=== PATIENT | male | born 1955 | race Caucasian/White ===

== ENCOUNTER 2019-08-17 08:45 | Day surgery (SDC) | payer MEDICARE, MEDICAID ==
[~2019-08-17 08:45] MED LIST: FURO-150 PO; GABA-532 PO; HYDR-3972 PO; IRON PO; METF1000 PO; PRAV40TA3 PO; PROC10TA10 PO; SERT50TA PO; SPIR100T5 PO; TERA5CAP4 PO
[2019-08-17] MEDS ORDERED: LIDOcaine 2% 5ml jelly ONE (09:27)
== END 2019-08-17 10:53 | disposition home or self-care (01) ==
LOC: WOUND CARE 08:45
PROVIDERS: ATTEND Nurse Practitioner Family
DX: E11.621 Type 2 diabetes mellitus with foot ulcer (principal); L97.511 Non-pressure chronic ulcer of other part of right foot limited to breakdown of skin; E11.49 Type 2 diabetes mellitus with other diabetic neurological complication; E11.65 Type 2 diabetes mellitus with hyperglycemia; I10 Essential (primary) hypertension; N40.0 Benign prostatic hyperplasia without lower urinary tract symptoms; E78.5 Hyperlipidemia, unspecified; E66.9 Obesity, unspecified; Z68.33 Body mass index [BMI] 33.0-33.9, adult; Z87.891 Personal history of nicotine dependence; Z85.72 Personal history of non-Hodgkin lymphomas
CPT/HCPCS: 36416; 82948; 93926; 97597

== ENCOUNTER 2019-08-20 14:05 | Day surgery (SDC) | payer MEDICARE, MEDICAID ==
[2019-08-20] MEDS ORDERED: LIDOcaine 2% 5ml jelly ONE (14:19)
== END 2019-08-20 15:04 | disposition home or self-care (01) ==
LOC: WOUND CARE 14:05
PROVIDERS: ATTEND Nurse Practitioner
DX: E11.621 Type 2 diabetes mellitus with foot ulcer (principal); L97.511 Non-pressure chronic ulcer of other part of right foot limited to breakdown of skin; E11.49 Type 2 diabetes mellitus with other diabetic neurological complication; E11.65 Type 2 diabetes mellitus with hyperglycemia; I10 Essential (primary) hypertension; N40.0 Benign prostatic hyperplasia without lower urinary tract symptoms; E78.5 Hyperlipidemia, unspecified; E66.9 Obesity, unspecified; Z68.33 Body mass index [BMI] 33.0-33.9, adult; Z87.891 Personal history of nicotine dependence; Z85.72 Personal history of non-Hodgkin lymphomas
CPT/HCPCS: 36416; 82948; 97597

== ENCOUNTER 2019-08-27 13:04 | Outpatient (CLI) | payer MEDICARE, MEDICAID | END 2019-08-27 13:50 | disposition home or self-care (01) | LOC: WOUND CARE 13:04 → EDSTATUS 13:40 → WOUND CARE 13:50 | PROVIDERS: ATTEND Nurse Practitioner | DX: E11.621 Type 2 diabetes mellitus with foot ulcer (principal); L97.511 Non-pressure chronic ulcer of other part of right foot limited to breakdown of skin; E11.49 Type 2 diabetes mellitus with other diabetic neurological complication; E11.65 Type 2 diabetes mellitus with hyperglycemia; I10 Essential (primary) hypertension; N40.0 Benign prostatic hyperplasia without lower urinary tract symptoms; E78.5 Hyperlipidemia, unspecified; E66.9 Obesity, unspecified; Z68.33 Body mass index [BMI] 33.0-33.9, adult; Z87.891 Personal history of nicotine dependence; Z85.72 Personal history of non-Hodgkin lymphomas | CPT/HCPCS: 36416; G0463 ==

== ENCOUNTER 2019-09-03 12:55 | Outpatient (CLI) | payer MEDICARE, MEDICAID | END 2019-09-03 13:56 | disposition home or self-care (01) | LOC: WOUND CARE 12:55 → EDSTATUS 13:00 → WOUND CARE 13:56 | PROVIDERS: ATTEND Nurse Practitioner | DX: E11.621 Type 2 diabetes mellitus with foot ulcer (principal); L97.511 Non-pressure chronic ulcer of other part of right foot limited to breakdown of skin; E11.49 Type 2 diabetes mellitus with other diabetic neurological complication; E11.65 Type 2 diabetes mellitus with hyperglycemia; I10 Essential (primary) hypertension; N40.0 Benign prostatic hyperplasia without lower urinary tract symptoms; E78.5 Hyperlipidemia, unspecified; E66.9 Obesity, unspecified; Z68.33 Body mass index [BMI] 33.0-33.9, adult; Z87.891 Personal history of nicotine dependence; Z85.72 Personal history of non-Hodgkin lymphomas | CPT/HCPCS: 36416; 82948; G0463 ==

== ENCOUNTER 2020-03-17 15:50 | Inpatient (IN) | payer MEDICARE, MEDICAID ==
[~2020-03-17] VITALS: Ht 185.4 cm; Wt 107.4 kg
[2020-03-17] MEDS ORDERED: normal saline 1000ML IV soln IVB ONE (16:55)
[2020-03-17 17:17] LABS: BASOPHILS % (AUTO) 0 % (0-1); EOSINOPHILS % (AUTO) 0 % (0-6); HEMATOCRIT 32.1 % (42.0-52.0); HEMOGLOBIN 10.1 g/dl (14.0-17.9); LYMPHOCYTES # (AUTO) 0.6 X10'3 (1.1-4.8); MEAN CORPUSCULAR HEMOGLOBIN 23.3 PG (27.0-31.0); MEAN CORPUSCULAR HGB CONC 31.4 g/dL (33.0-36.5); MEAN CORPUSCULAR VOLUME 74.3 FL (78-98); MEAN PLATELET VOLUME 8.6 FL (7.4-10.4); MONOCYTES # (AUTO) 0.7 X10'3 (0-0.9); MONOCYTES % (AUTO) 3.6 % (2-12); NEUTROPHILS # (AUTO) 18.8 X10'3 (1.8-7.7); NEUTROPHILS % (AUTO) 93.4 % (42-75); PLATELET COUNT 145 X10'3 (140-440); RED BLOOD COUNT 4.32 X10'6 (4.70-6.10); RED CELL DISTRIBUTION WIDTH 21.6 % (11.5-14.5); WHITE BLOOD COUNT 20.1 X10'3 (4.5-11.0)
--- NOTE | 2020-03-17 17:26 | NUR ---
spouse at bedside.
[2020-03-17 17:33] LABS: ALANINE AMINOTRANSFERASE 55 U/L (12-78); ALBUMIN 2.7 G/DL (3.4-5.0); ALBUMIN/GLOBULIN RATIO 0.5 (1.1-1.5); ALKALINE PHOSPHATASE 94 IU/L (46-116); ANION GAP 7 (8-16); ASPARTATE AMINO TRANSFERASE 43 U/L (10-37); BILIRUBIN,TOTAL 1.1 MG/DL (0.1-1.0); BLOOD UREA NITROGEN 33 MG/DL (7-18); CALCIUM 9.4 MG/DL (8.5-10.1); CHLORIDE 98 MMOL/L (99-107); CREATININE 1.32 MG/DL (0.60-1.10); GLUCOSE 279 MG/DL (70-104); POTASSIUM 4.4 MMOL/L (3.5-5.1); SODIUM 134 MMOL/L (135-145); TOTAL CARBON DIOXIDE 29.2 MMOL/L (24-32); eGFR 55 ML/MIN
[2020-03-17 17:35] LABS: LACTIC SEPSIS 1.8 MMOL/L (0.4-2.0)
[2020-03-17 17:42] LABS: CLARITY,URINE CLOUDY (Clear); COLOR,URINE YELLOW (Yellow); GLUCOSE, URINE 500 mg/dl (Neg); KETONES,URINE NEGATIVE (Neg); LEUKOCYTE ESTERASE ,URINE MODERATE (Neg); NITRITES, URINE NEGATIVE (Neg); OCCULT BLOOD,URINE LARGE (Neg); PROTEIN,URINE 30 mg/dl (Neg); UROBILINOGEN,URINE 0.2 E.U/dL (0.2-1.0)
[2020-03-17 17:48] LABS: ETHANOL < 0.010 GM/DL (0.0-0.010); TROPONIN I 0.04 NG/ML (0.0-0.05)
[2020-03-17 17:52] LABS: URINE AMPHETAMINE SCREEN NEGATIVE (Neg); URINE BARBITUATE SCREEN NEGATIVE (Neg); URINE BENZODIAZEPINES SCREEN NEGATIVE (Neg); URINE CANNABINOID SCREEN NEGATIVE (Neg); URINE COCAINE SCREEN NEGATIVE (Neg); URINE METHADONE SCREEN NEGATIVE (Neg); URINE OPIATE SCREEN POSITIVE (Neg); URINE PHENCYCLIDINE SCREEN NEGATIVE (Neg)
[2020-03-17 18:09] LABS: PLATELET ESTIMATE DECREASED
[2020-03-17 18:10] LABS: ANISOCYTOSIS 3+; ELLIPTOCYTES 1+; MICROCYTOSIS 1+; POIKILOCYTOSIS FEW; POLYCHROMASIA 1+; TARGET CELLS FEW
[2020-03-17 18:14] LABS: UA COLLECTION TYPE STRAIGHT CATH
[2020-03-17 18:15] LABS: WBC,URINE 50-100 /HPF (0-4)
[2020-03-17 18:16] LABS: AMORPHOUS URATES 3+; BACTERIA,URINE FEW /HPF (Neg); MUCUS STRANDS FEW /LPF (Neg); SQUAMOUS EPITHELIAL CELL,UR NONE SEEN /LPF (FEW)
[2020-03-17] MEDS ORDERED: CefTRIAXone 2gm/D5W 50ml BAG 50 ML IV ONE (19:40)
[2020-03-17] MEDS ORDERED: insulin regular, human 10 units/0.1 ml syringe IV ONE (19:40)
[2020-03-17] MEDS ORDERED: ondansetron/PF 4mg/2ml inj IV ONE (19:50)
[2020-03-17] MEDS ORDERED: morphine 4 MG/ML inj SYRINge IV ONE (19:50)
[2020-03-17] MEDS ORDERED: insulin regular, human 10 units/0.1 ml syringe SQ ONE (20:10)
--- NOTE | 2020-03-17 20:40 | NUR ---
pt non verbal, but appears more comfortable after morphine administration.
[2020-03-17] MEDS ORDERED: azithromycin/NS 500mg/250ml 250 ML IV ONE (20:50)
[2020-03-17] MEDS ORDERED: DEXL30CA3 PO (20:51)
[2020-03-17] MEDS ORDERED: GLIM2TAB6 PO (20:56)
[2020-03-17] MEDS ORDERED: RIVA20TA PO (20:56)
[2020-03-17] MEDS ORDERED: FLO0.4C PO (20:56)
[2020-03-17] MEDS ORDERED: magnesium 2GM in 50ml NS 50 ML IV PRN (21:00)
[2020-03-17] MEDS ORDERED: potassium CL 10mEq/100ml bag 100 ML IV PRN ×2 (21:00)
[2020-03-17] MEDS ORDERED: magnesium Cl slow-release 64mg tablet PO PRN (21:00)
[2020-03-17] MEDS ORDERED: ondansetron/PF 4mg/2ml inj IV PRN (21:00)
[2020-03-17] MEDS ORDERED: magnesium 4gm in 100ml NS 100 ML IV PRN (21:00)
[2020-03-17] MEDS ORDERED: potassium Cl 20 mEq SR tablet PO PRN (21:00)
--- NOTE | 2020-03-17 23:31 | NUR ---
Pt is diaphoretic with increased heart rate and respiratory rate. Hospitalist paged.
[2020-03-17] MEDS ORDERED: furosemide 10 MG/1 ML 10ml inj IV ONE (23:50)
[2020-03-17] MEDS ORDERED: ipratropium/albuterol 3ml nebule NEB ONE (23:50)
--- NOTE | 2020-03-17 23:55 | NUR ---
ekg completed at [id number]
--- NOTE | 2020-03-18 00:34 | NUR ---
Per MD, 60 mg Lasix administered. RT paged for SVT and BiPap. Condom cath reapplied
--- NOTE | 2020-03-18 01:05 | NUR ---
received report from Simran PERAZA [facility], had opportunity to ask questions, awaiting pt arrival to floor.
--- NOTE | 2020-03-18 01:09 | NUR ---
PAGER ID: [phone] MESSAGE: [phone], Valentin Fisher- pt needs an O2 and Bipap order. pt is coming up to the floor requiring both. thank you
--- NOTE | 2020-03-18 01:15 | NUR ---
pt arrived to floor with all belongings, tele attached, VS stable, call light in reach, pt pulled off condom cath again (acording to MACHINE MOLDER SQUEEZE), pt with visible urine on self, pt has wound on bottom, pt cleaned up and linens replaced, will ask MD for saldivar order.
--- NOTE | 2020-03-18 01:20 | NUR ---
per dr Myles, place saldivar to prevent further breakdown on bottom.
[2020-03-18 01:30] VITALS: BP 95/56
--- NOTE | 2020-03-18 02:13 | NUR ---
PAGER ID: [phone] MESSAGE: [phone], PhillipValentin- cannot place saldivar, multiple attempts unsuccessful, we need a urologist to place saldivar. pt continues to trickle pee w/ wound on bottom. condom cath does not work/stay on. Addendum: 03/18/20 at 0214 by John Ramos RN dr nuñez responded- place barrier cream for now and urologist can assess in AM
[2020-03-18] MEDS ORDERED: LIDOcaine 2% 10ml TOPICAL JELLY (Urojet) TP ONE (03:05)
[2020-03-18 03:41] LABS: ABG BASE EXCESS -1.5 mmol/L (-2.0-2.0); ABG HCO3 24.4 mmol/L (22.0-26.0); ABG PCO2 (T) 45.8 mmHg (35.0-48.0); ABG PO2 (T) 72.4 mmHg (75.0-100.0); ALLEN'S TEST POSITIVE; FMetHb 0.2 % (0.0-1.5); FO2Hb 91.9 % (94-97); PATIENT TEMPERATURE 36.9; RESPIRATORY RATE 16 b/min; TOTAL HEMOGLOBIN 11.3 G/dl (14.0-18.0)
--- NOTE | 2020-03-18 04:09 | NUR ---
unable to complete DART pt not able to answer questions
[2020-03-18 05:50] LABS: ALBUMIN 2.5 G/DL (3.4-5.0); ANION GAP 10 (8-16); BLOOD UREA NITROGEN 42 MG/DL (7-18); BUN/CREATININE RATIO 27.5 (5.4-32.0); CALCIUM 8.9 MG/DL (8.5-10.1); CHLORIDE 103 MMOL/L (99-107); CHOLESTEROL 70 MG/DL (0-200); CREATININE 1.53 MG/DL (0.60-1.10); HDL CHOLESTEROL 10 MG/DL (35-60); LDL CHOLESTEROL 42 MG/DL (50-100); MAGNESIUM 1.9 MG/DL (1.5-2.4); POTASSIUM 4.4 MMOL/L (3.5-5.1); SODIUM 140 MMOL/L (135-145); TOTAL CARBON DIOXIDE 26.7 MMOL/L (24-32); TRIGLYCERIDES 105 MG/DL (20-135); eGFR 46 ML/MIN
[2020-03-18 05:51] LABS: GLUCOSE 278 MG/DL (70-104)
[2020-03-18 05:52] LABS: BASOPHILS % (AUTO) 0.1 % (0-1); EOSINOPHILS % (AUTO) 0 % (0-6); HEMATOCRIT 32.3 % (42.0-52.0); LYMPHOCYTES # (AUTO) 0.5 X10'3 (1.1-4.8); LYMPHOCYTES % (AUTO) 2.5 % (21-51); MEAN CORPUSCULAR HGB CONC 30.9 g/dL (33.0-36.5); MEAN CORPUSCULAR VOLUME 74.6 FL (78-98); MEAN PLATELET VOLUME 8.9 FL (7.4-10.4); MONOCYTES # (AUTO) 0.5 X10'3 (0-0.9); MONOCYTES % (AUTO) 2.7 % (2-12); NEUTROPHILS # (AUTO) 18.5 X10'3 (1.8-7.7); NEUTROPHILS % (AUTO) 94.7 % (42-75); PLATELET COUNT 132 X10'3 (140-440); RED BLOOD COUNT 4.34 X10'6 (4.70-6.10); RED CELL DISTRIBUTION WIDTH 21.5 % (11.5-14.5); WHITE BLOOD COUNT 19.6 X10'3 (4.5-11.0)
[2020-03-18 06:00] VITALS: BP 98/60
--- NOTE | 2020-03-18 06:28 | NUR ---
Problems reprioritized. Patient report given, questions answered & plan of care reviewed with Dolores Nathan RN.
[2020-03-18] MEDS: K and/or MAG REPLACEMENT MC SCH ×2 (07:27→20:06)
[2020-03-18] MEDS: levoFLOXACIN-Levaquin 500mg/D5 100 ML IV SCH (07:45)
[2020-03-18 07:49] LABS: ANISOCYTOSIS 3+; MICROCYTOSIS 1+; PLATELET ESTIMATE DECREASED; POLYCHROMASIA FEW
[2020-03-18 07:50] LABS: ELLIPTOCYTES 1+; SCHISTOCYTES FEW
[2020-03-18] MEDS: gabapentin 300mg capsule PO SCH ×2 (09:12→13:25)
[2020-03-18] MEDS: ferrous sulfate 325mg tablet PO SCH (09:13)
[2020-03-18] MEDS: tamsulosin 0.4mg capsule PO SCH (09:13)
[2020-03-18] MEDS: sertraline 50mg tablet PO SCH (09:13)
[2020-03-18] MEDS: pravastatin 40mg tablet PO SCH (09:22)
--- NOTE | 2020-03-18 10:08 | NUR ---
Pt with a low Karthik of 9. No documented edema or wounds per physical assessment though noted that wound care has been consulted for wound on coccyx per consult, pending assessment at this time. Pt documented as A/O x 1 and confused, currently NPO. Will continue to follow closely and monitor need for nutrition intervention with PO diet advancement pending wound care assessment. Addendum: 03/18/20 at [address] Amended: Links added.
[2020-03-18 11:00] VITALS: BP 96/48
--- NOTE | 2020-03-18 13:51 | NUR ---
Page to [facility] PAGER ID: [phone] MESSAGE: [phone] Pt. has BG levels > 250 this morning and this afternoon. The insulin has been DC'd. No diet orders .He has successfully remained off Bi-ipap since this AM. Sats in mid 90's. Skin is clammy and cool, LOC Obtunded.
[2020-03-18] MEDS: CefTRIAXone/D5W-Rocephin 1gm 50 ML IV SCH (14:39)
[2020-03-18 14:40] LABS: ABG BASE EXCESS 0.2 mmol/L (-2.0-2.0); ABG HCO3 26.1 mmol/L (22.0-26.0); ABG OXYGEN SATURATION 93.8 % (94-97); ABG PCO2 (T) 47.5 mmHg (35.0-48.0); ABG PO2 (T) 75.3 mmHg (75.0-100.0); ALLEN'S TEST POSITIVE; FCOHb 1.4 % (0.0-3.9); FLOW 3 L/min; FO2Hb 92.5 % (94-97); TOTAL HEMOGLOBIN 10.9 G/dl (14.0-18.0)
[2020-03-18 15:00] VITALS: BP 94/54
[2020-03-18] MEDS: rivaroxaban 20mg tablet PO SCH (17:53)
[2020-03-18 18:00] VITALS: BP 95/59
--- NOTE | 2020-03-18 18:44 | NUR ---
Add to History Stage 4 lymphoma 2012. Treated at [facility]
--- NOTE | 2020-03-18 18:55 | NUR ---
Patient in room PCU 3012. I have received report from NATALIE PERAZA and had the opportunity to ask questions and assume patient care.
[2020-03-18] MEDS: lactobacillus rhamnosus 10,000 MMU CELLS/CAPSULE PO SCH (20:00)
[2020-03-18] MEDS ORDERED: dextrose ORAL solution 15 GM/59 ML bottle PO PRN ×2 (20:35)
[2020-03-18] MEDS ORDERED: dextrose 50%-water 50ml dispensing syringe IV PRN ×2 (20:35)
[2020-03-18] MEDS ORDERED: glucagon, human recombinant 1mg kit SUBCUT PRN (20:35)
[2020-03-18] MEDS ORDERED: MESSAGE TO PHARMACY PO ONE (20:35)
[2020-03-18 21:14] LABS: HEMOGLOBIN A1C 10.5 % (4.5-6.2)
[2020-03-18 22:00] VITALS: BP 101/64
[2020-03-19] MEDS: insulin Lispro (HumaLOG) vial - multi-dose SQ SCH ×4 (01:47→18:59)
[2020-03-19 02:00] VITALS: BP 101/61
--- NOTE | 2020-03-19 06:01 | NUR ---
Student documentation: I have reviewed and agree with all interventions, assessments performed and documented by Cody MEANS. Student Medication Administration: For this medication-pass time frame, all medication were reviewed, dispensed, administered and documented per hospital policy by Cody Harper RN.
--- NOTE | 2020-03-19 06:22 | NUR ---
Problems reprioritized. Patient report given, questions answered & plan of care reviewed with Yolanda PERAZA.
[2020-03-19 06:23] LABS: ALBUMIN 2.2 G/DL (3.4-5.0); ANION GAP 10 (8-16); BLOOD UREA NITROGEN 60 MG/DL (7-18); BUN/CREATININE RATIO 42.6 (5.4-32.0); CALCIUM 8.4 MG/DL (8.5-10.1); CHLORIDE 103 MMOL/L (99-107); CREATININE 1.41 MG/DL (0.60-1.10); GLUCOSE 212 MG/DL (70-104); MAGNESIUM 2.2 MG/DL (1.5-2.4); POTASSIUM 3.7 MMOL/L (3.5-5.1); SODIUM 139 MMOL/L (135-145); TOTAL CARBON DIOXIDE 26.4 MMOL/L (24-32); eGFR 51 ML/MIN
[2020-03-19 06:24] LABS: BASOPHILS # (AUTO) 0.1 X10'3 (0-0.2); BASOPHILS % (AUTO) 0.4 % (0-1); EOSINOPHILS % (AUTO) 0 % (0-6); HEMATOCRIT 30.4 % (42.0-52.0); HEMOGLOBIN 9.5 g/dl (14.0-17.9); LYMPHOCYTES # (AUTO) 0.4 X10'3 (1.1-4.8); LYMPHOCYTES % (AUTO) 3.2 % (21-51); MEAN CORPUSCULAR HEMOGLOBIN 23.4 PG (27.0-31.0); MEAN CORPUSCULAR HGB CONC 31.2 g/dL (33.0-36.5); MEAN CORPUSCULAR VOLUME 74.9 FL (78-98); MEAN PLATELET VOLUME 8.8 FL (7.4-10.4); MONOCYTES # (AUTO) 0.5 X10'3 (0-0.9); MONOCYTES % (AUTO) 3.7 % (2-12); NEUTROPHILS # (AUTO) 11.8 X10'3 (1.8-7.7); NEUTROPHILS % (AUTO) 92.7 % (42-75); PLATELET COUNT 95 X10'3 (140-440); RED BLOOD COUNT 4.06 X10'6 (4.70-6.10); RED CELL DISTRIBUTION WIDTH 21.2 % (11.5-14.5); WHITE BLOOD COUNT 12.8 X10'3 (4.5-11.0)
--- NOTE | 2020-03-19 06:45 | NUR ---
Patient in room PCU 3012. I have received report from Jony PERAZA and had the opportunity to ask questions and assume patient care.
[2020-03-19 07:00] VITALS: BP 99/54
[2020-03-19 07:37] LABS: PLATELET ESTIMATE DECREASED
[2020-03-19 07:38] LABS: ANISOCYTOSIS 3+; BURR CELLS FEW; ELLIPTOCYTES 1+; HYPOCHROMASIA 1+; MICROCYTOSIS 1+; POLYCHROMASIA 1+; SCHISTOCYTES FEW; TARGET CELLS FEW; TEAR DROP CELLS 1+
--- NOTE | 2020-03-19 07:46 | NUR ---
PAGER ID: [phone] MESSAGE: [phone] Valentin Fisher continually yelling about food. Can patient eat? He is more alert today. Yolanda PERAZA [id number]
[2020-03-19] MEDS: K and/or MAG REPLACEMENT MC SCH ×2 (08:00→20:00)
[2020-03-19] MEDS: levoFLOXACIN-Levaquin 500mg/D5 100 ML IV SCH (08:44)
[2020-03-19] MEDS: CefTRIAXone/D5W-Rocephin 1gm 50 ML IV SCH (08:44)
[2020-03-19] MEDS: lactobacillus rhamnosus 10,000 MMU CELLS/CAPSULE PO SCH ×2 (08:45→21:23)
[2020-03-19] MEDS: sertraline 50mg tablet PO SCH (08:45)
[2020-03-19] MEDS: tamsulosin 0.4mg capsule PO SCH (08:45)
[2020-03-19] MEDS: pravastatin 40mg tablet PO SCH (08:45)
[2020-03-19] MEDS: ferrous sulfate 325mg tablet PO SCH (08:45)
[2020-03-19 11:00] VITALS: BP 87/54
--- NOTE | 2020-03-19 11:22 | NUR ---
Bedside swallow performed with soft foods and thin liquids. Patient did well with no coughing or signs of distress. MD at bedside and gave orders to start [facility] soft diet.
--- NOTE | 2020-03-19 12:16 | NUR ---
MD is aware of lower BP trends, MAP always greater than 60. Pt. asymptomatic.
[2020-03-19 15:00] VITALS: BP 95/57
[2020-03-19] MEDS: vancomycin/NS 1 GM ADD-VANTAGE 250 ML IV SCH (16:02)
[2020-03-19] MEDS: rivaroxaban 20mg tablet PO SCH (16:10)
--- NOTE | 2020-03-19 17:02 | NUR ---
Malnutrition/DM consults: Pt admit DX sepsis r/t UTI, AMS, T2DM A1C 10.5, and sacral/coccyx pressure injury open pending WOC assessment per EMR. Advanced to carb controlled diet from NPO; refused first meal at lunch today. MCV 74.9 receiving iron and takes at home per EMR. Pt hx trouble getting Glu below 400 though only takes metformin at home per EMR. Not appropriate for DM ed at this time given ALOC AOx2; deferred until more appropriate. Will monitor for WOC assessment and additional protein education needs pending results. Will monitor for PO acceptance and additional protein/kcal needs this admit. Rec: 1. continue carb controlled diet 2. monitor for ONS needs pending PO hx 3. routine bowel care 4. monitor for WOC results; consider Srini supplementation if appropriate 5. wt per rx Addendum: 03/19/20 at [address] Amended: Links added.
--- NOTE | 2020-03-19 18:26 | NUR ---
Problems reprioritized. Patient report given, questions answered & plan of care reviewed with Soraya PERAZA. Pt. sitting on edge of bed. Pt. is no apparent distress.
[2020-03-19 18:30] VITALS: BP 101/53
--- NOTE | 2020-03-19 18:30 | NUR ---
Patient in room PCU 3012. I have received report from GISELLE and had the opportunity to ask questions and assume patient care.
[2020-03-19] MEDS: acetaminophen 325mg tablet PO PRN (19:00)
[2020-03-19 22:00] VITALS: BP 92/56
[2020-03-20 03:00] VITALS: BP 100/60
[2020-03-20] MEDS: vancomycin/NS 1 GM ADD-VANTAGE 250 ML IV SCH ×2 (03:28→15:54)
--- NOTE | 2020-03-20 06:24 | NUR ---
Problems reprioritized. Patient report given, questions answered & plan of care reviewed with GISELLE.
[2020-03-20 06:26] LABS: BASOPHILS % (AUTO) 0.1 % (0-1); EOSINOPHILS % (AUTO) 0.2 % (0-6); HEMATOCRIT 30.2 % (42.0-52.0); HEMOGLOBIN 9.5 g/dl (14.0-17.9); LYMPHOCYTES # (AUTO) 0.7 X10'3 (1.1-4.8); LYMPHOCYTES % (AUTO) 5.2 % (21-51); MEAN CORPUSCULAR HEMOGLOBIN 23.3 PG (27.0-31.0); MEAN CORPUSCULAR HGB CONC 31.3 g/dL (33.0-36.5); MEAN CORPUSCULAR VOLUME 74.3 FL (78-98); MEAN PLATELET VOLUME 8.5 FL (7.4-10.4); MONOCYTES # (AUTO) 0.6 X10'3 (0-0.9); MONOCYTES % (AUTO) 4.3 % (2-12); NEUTROPHILS # (AUTO) 11.5 X10'3 (1.8-7.7); NEUTROPHILS % (AUTO) 90.2 % (42-75); PLATELET COUNT 101 X10'3 (140-440); RED BLOOD COUNT 4.07 X10'6 (4.70-6.10); WHITE BLOOD COUNT 12.7 X10'3 (4.5-11.0)
[2020-03-20 06:33] LABS: ALBUMIN 2.1 G/DL (3.4-5.0); ANION GAP 6 (8-16); BLOOD UREA NITROGEN 54 MG/DL (7-18); BUN/CREATININE RATIO 45.8 (5.4-32.0); CALCIUM 8.2 MG/DL (8.5-10.1); CHLORIDE 101 MMOL/L (99-107); CREATININE 1.18 MG/DL (0.60-1.10); MAGNESIUM 2.2 MG/DL (1.5-2.4); POTASSIUM 3.4 MMOL/L (3.5-5.1); SODIUM 136 MMOL/L (135-145); TOTAL CARBON DIOXIDE 28.8 MMOL/L (24-32); eGFR 62 ML/MIN
[2020-03-20 06:34] LABS: GLUCOSE 157 MG/DL (70-104)
--- NOTE | 2020-03-20 06:37 | NUR ---
Patient in room PCU 3012. I have received report from Soraya PERAZA and had the opportunity to ask questions and assume patient care.
[2020-03-20 07:00] VITALS: BP 109/58
[2020-03-20 07:51] LABS: ANISOCYTOSIS 3+; TOTAL CELLS COUNTED 100
[2020-03-20 07:52] LABS: ELLIPTOCYTES 1+
[2020-03-20 07:55] LABS: SCHISTOCYTES 1+
[2020-03-20 07:56] LABS: POLYCHROMASIA FEW; TEAR DROP CELLS 1+
[2020-03-20 07:57] LABS: BURR CELLS FEW; HYPOCHROMASIA 1+; MICROCYTOSIS 1+
[2020-03-20 07:58] LABS: PLATELET ESTIMATE DECREASED; TOXIC VACUOLATION FEW
[2020-03-20 07:59] LABS: TOXIC GRANULATION 1+
[2020-03-20] MEDS: lactobacillus rhamnosus 10,000 MMU CELLS/CAPSULE PO SCH ×2 (08:17→19:05)
[2020-03-20] MEDS: potassium Cl 20 mEq SR tablet PO PRN ×3 (08:17→16:36)
[2020-03-20] MEDS: ferrous sulfate 325mg tablet PO SCH (08:17)
[2020-03-20] MEDS: sertraline 50mg tablet PO SCH (08:17)
[2020-03-20] MEDS: tamsulosin 0.4mg capsule PO SCH (08:17)
[2020-03-20] MEDS: CefTRIAXone/D5W-Rocephin 1gm 50 ML IV SCH (08:17)
[2020-03-20] MEDS: K and/or MAG REPLACEMENT MC SCH ×2 (08:30→20:00)
[2020-03-20] MEDS: pravastatin 40mg tablet PO SCH (09:00)
[2020-03-20] MEDS: insulin Lispro (HumaLOG) vial - multi-dose SQ SCH ×3 (09:02→19:07)
[2020-03-20 11:00] VITALS: BP 111/59
--- NOTE | 2020-03-20 11:48 | NUR ---
PAGER ID: [phone] MESSAGE: [phone] Valentin Fisher - Patient takes Neurontin 900 mg TID at home, can we restart this? Yolanda PERAZA [id number]
[2020-03-20 15:00] VITALS: BP 112/64
[2020-03-20] MEDS: rivaroxaban 20mg tablet PO SCH (16:36)
--- NOTE | 2020-03-20 16:48 | NUR ---
PAGER ID: [phone] MESSAGE: [phone] Valentin Fisher 7 beat run of rosiotachAsymptomatic. Yolanda RN [id number]
[2020-03-20 18:00] VITALS: BP 108/52
--- NOTE | 2020-03-20 18:17 | NUR ---
Problems reprioritized. Patient report given, questions answered & plan of care reviewed with Lola PERAZA and Nettie PERAZA.
--- NOTE | 2020-03-20 18:30 | NUR ---
Patient in room PCU 3012. I have received report from Yolanda PERAZA and had the opportunity to ask questions and assume patient care.
[2020-03-20 22:00] VITALS: BP 122/56
[2020-03-20] MEDS: insulin glargine (Lantus) pen - multi-dose SQ SCH (22:00)
[2020-03-20] MEDS ORDERED: acetaminophen 325mg tablet PO PRN (23:45)
[2020-03-21] MEDS: acetaminophen 325mg tablet PO PRN (00:12)
[2020-03-21 02:00] VITALS: BP 110/47
[2020-03-21] MEDS ORDERED: VANCOMYCIN LEVEL IV ONE (02:30)
[2020-03-21 02:54] LABS: BASOPHILS % (AUTO) 0 % (0-1); EOSINOPHILS % (AUTO) 0.3 % (0-6); HEMATOCRIT 30.5 % (42.0-52.0); HEMOGLOBIN 9.5 g/dl (14.0-17.9); LYMPHOCYTES # (AUTO) 0.7 X10'3 (1.1-4.8); LYMPHOCYTES % (AUTO) 4.9 % (21-51); MEAN CORPUSCULAR HEMOGLOBIN 23.5 PG (27.0-31.0); MEAN CORPUSCULAR HGB CONC 31.3 g/dL (33.0-36.5); MEAN PLATELET VOLUME 8.5 FL (7.4-10.4); MONOCYTES # (AUTO) 0.6 X10'3 (0-0.9); MONOCYTES % (AUTO) 4.1 % (2-12); NEUTROPHILS # (AUTO) 12.4 X10'3 (1.8-7.7); NEUTROPHILS % (AUTO) 90.7 % (42-75); PLATELET COUNT 113 X10'3 (140-440); RED BLOOD COUNT 4.06 X10'6 (4.70-6.10); RED CELL DISTRIBUTION WIDTH 21.5 % (11.5-14.5); WHITE BLOOD COUNT 13.7 X10'3 (4.5-11.0)
[2020-03-21 03:08] LABS: ALBUMIN 2.2 G/DL (3.4-5.0); ANION GAP 5 (8-16); BLOOD UREA NITROGEN 41 MG/DL (7-18); CALCIUM 8.3 MG/DL (8.5-10.1); CHLORIDE 104 MMOL/L (99-107); CREATININE 1.05 MG/DL (0.60-1.10); MAGNESIUM 2.2 MG/DL (1.5-2.4); POTASSIUM 3.9 MMOL/L (3.5-5.1); SODIUM 138 MMOL/L (135-145); TOTAL CARBON DIOXIDE 29.4 MMOL/L (24-32); eGFR 71 ML/MIN
[2020-03-21 03:09] LABS: GLUCOSE 211 MG/DL (70-104); VANCOMYCIN,TROUGH 10.5 UG/ML (6.0-14.0)
[2020-03-21] MEDS: vancomycin/NS 1 GM ADD-VANTAGE 250 ML IV SCH (03:15)
--- NOTE | 2020-03-21 05:08 | NUR ---
[place] documentation: I have reviewed and agree with all interventions, assessments performed and documented by Nettie PERAZA. [place] Medication Administration: For this medication-pass time frame, all medication were reviewed, dispensed, administered and documented per hospital policy by Nettie PERAZA.
--- NOTE | 2020-03-21 05:59 | NUR ---
Problems reprioritized. Patient report given, questions answered & plan of care reviewed with Yolanda Lara RN.
--- NOTE | 2020-03-21 06:29 | NUR ---
Patient in room PCU 3012. I have received report from KARMEN Davila and had the opportunity to ask questions and assume patient care.
[2020-03-21 07:00] VITALS: BP 102/61
[2020-03-21] MEDS: K and/or MAG REPLACEMENT MC SCH ×2 (08:00→20:00)
[2020-03-21] MEDS: CefTRIAXone/D5W-Rocephin 1gm 50 ML IV SCH (08:14)
[2020-03-21] MEDS: ferrous sulfate 325mg tablet PO SCH (08:14)
[2020-03-21] MEDS: tamsulosin 0.4mg capsule PO SCH (08:14)
[2020-03-21] MEDS: lactobacillus rhamnosus 10,000 MMU CELLS/CAPSULE PO SCH ×2 (08:14→20:02)
[2020-03-21] MEDS: pravastatin 40mg tablet PO SCH (08:15)
[2020-03-21] MEDS: sertraline 50mg tablet PO SCH (08:16)
[2020-03-21] MEDS: insulin Lispro (HumaLOG) vial - multi-dose SQ SCH ×3 (08:40→19:15)
[2020-03-21 11:00] VITALS: BP 110/52
--- NOTE | 2020-03-21 11:25 | NUR ---
F/u 03/21: Per WOC note pt has stage II coccyx PU w/ moisture-related dermatitis. Pt PO remains poor on carb controlled diet 0-25% mostly 0%/refusing not meeting needs. AOx3 per EMR. RD recommends Srini smoothie BIDBD w/ Glucerna WL for additional protein, kcal, and wound healing needs. notified. Rec: 1. continue carb controlled diet; encourage PO 2. Srini smoothie BIDBD; Glucerna WL; encourage PO 3. routine bowel care 4. wt per rx 5. DM/high protein eds once pt more appropriate Addendum: 03/21/20 at [address] Amended: Links added.
[2020-03-21] MEDS: NUT.TX.GLUC.INTOLER,LAC-FR,SOY (GLUCERNA) 237 ML PO SCH (12:30)
[2020-03-21] MEDS: gabapentin 300mg capsule PO SCH ×2 (13:12→20:02)
[2020-03-21 15:00] VITALS: BP 119/75
[2020-03-21] MEDS: rivaroxaban 20mg tablet PO SCH (17:27)
[2020-03-21] MEDS: VANCOmycin 1250MG/NS 250ml Bag 250 ML IV SCH (17:27)
[2020-03-21 18:00] VITALS: BP 103/46
--- NOTE | 2020-03-21 18:30 | NUR ---
Patient in room PCU 3012. I have received report from Yolanda PERAZA and had the opportunity to ask questions and assume patient care.
--- NOTE | 2020-03-21 18:33 | NUR ---
Problems reprioritized. Patient report given, questions answered & plan of care reviewed with Lola PERAZA and Nettie PERAZA. Pt. is sitting on the edge of bed, eating dinner. Pt. offers no complaints.
[2020-03-21] MEDS: insulin glargine (Lantus) pen - multi-dose SQ SCH (21:00)
--- NOTE | 2020-03-21 21:19 | NUR ---
Administered lantus 12 units 03/20/2020 @2200. Called pharmacy to have it retimed for 2099 was not retimed, will undo medication specialist to keep lantus schedule on track
[2020-03-21 22:00] VITALS: BP 105/60
[2020-03-22 02:00] VITALS: BP 120/52
[2020-03-22] MEDS: VANCOmycin 1250MG/NS 250ml Bag 250 ML IV SCH ×2 (02:19→15:28)
[2020-03-22 05:09] LABS: BASOPHILS # (AUTO) 0.1 X10'3 (0-0.2); BASOPHILS % (AUTO) 0.5 % (0-1); EOSINOPHILS % (AUTO) 0.3 % (0-6); HEMATOCRIT 31.8 % (42.0-52.0); HEMOGLOBIN 9.7 g/dl (14.0-17.9); LYMPHOCYTES # (AUTO) 0.8 X10'3 (1.1-4.8); LYMPHOCYTES % (AUTO) 5.9 % (21-51); MEAN CORPUSCULAR HGB CONC 30.5 g/dL (33.0-36.5); MEAN CORPUSCULAR VOLUME 75.4 FL (78-98); MEAN PLATELET VOLUME 8.3 FL (7.4-10.4); MONOCYTES # (AUTO) 0.5 X10'3 (0-0.9); MONOCYTES % (AUTO) 3.5 % (2-12); NEUTROPHILS # (AUTO) 12.2 X10'3 (1.8-7.7); NEUTROPHILS % (AUTO) 89.8 % (42-75); PLATELET COUNT 128 X10'3 (140-440); RED BLOOD COUNT 4.21 X10'6 (4.70-6.10); RED CELL DISTRIBUTION WIDTH 21.7 % (11.5-14.5); WHITE BLOOD COUNT 13.6 X10'3 (4.5-11.0)
[2020-03-22 05:12] LABS: ALBUMIN 2.3 G/DL (3.4-5.0); ANION GAP 4 (8-16); BLOOD UREA NITROGEN 27 MG/DL (7-18); BUN/CREATININE RATIO 26.7 (5.4-32.0); CALCIUM 8.7 MG/DL (8.5-10.1); CHLORIDE 110 MMOL/L (99-107); CREATININE 1.01 MG/DL (0.60-1.10); POTASSIUM 4.1 MMOL/L (3.5-5.1); SODIUM 144 MMOL/L (135-145); TOTAL CARBON DIOXIDE 29.7 MMOL/L (24-32); eGFR 75 ML/MIN
[2020-03-22 05:21] LABS: GLUCOSE 130 MG/DL (70-104)
[2020-03-22 06:00] VITALS: BP 125/60
--- NOTE | 2020-03-22 06:12 | NUR ---
Problems reprioritized. Patient report given, questions answered & plan of care reviewed with Lyubov PERAZA.
[2020-03-22 07:17] LABS: ANISOCYTOSIS 3+; ELLIPTOCYTES 2+; MICROCYTOSIS 1+; PLATELET ESTIMATE DECREASED; TOTAL CELLS COUNTED 100
[2020-03-22 07:18] LABS: POLYCHROMASIA FEW; SCHISTOCYTES FEW
[2020-03-22] MEDS: JUVEN Smoothie Arginine/Glut./Ca2+Bmb (Juven 19.3pkt) 240ml cup PO SCH ×2 (07:30→17:30)
[2020-03-22] MEDS: K and/or MAG REPLACEMENT MC SCH ×2 (08:00→20:00)
[2020-03-22] MEDS: gabapentin 300mg capsule PO SCH ×3 (08:35→20:05)
[2020-03-22] MEDS: tamsulosin 0.4mg capsule PO SCH (08:35)
[2020-03-22] MEDS: sertraline 50mg tablet PO SCH (08:36)
[2020-03-22] MEDS: ferrous sulfate 325mg tablet PO SCH (08:36)
[2020-03-22] MEDS: lactobacillus rhamnosus 10,000 MMU CELLS/CAPSULE PO SCH ×2 (08:36→20:05)
[2020-03-22] MEDS: pravastatin 40mg tablet PO SCH (08:36)
[2020-03-22] MEDS: insulin Lispro (HumaLOG) vial - multi-dose SQ SCH ×3 (08:48→19:05)
[2020-03-22] MEDS ORDERED: LORazepam 2 mg/ml vial IV PRN (10:00)
[2020-03-22 12:12] VITALS: BP 120/35
[2020-03-22] MEDS: NUT.TX.GLUC.INTOLER,LAC-FR,SOY (GLUCERNA) 237 ML PO SCH (12:30)
[2020-03-22 15:00] VITALS: BP 91/61
[2020-03-22] MEDS: rivaroxaban 20mg tablet PO SCH (17:10)
[2020-03-22 18:00] VITALS: BP 102/52
--- NOTE | 2020-03-22 18:14 | NUR ---
Problems reprioritized. Patient report given, questions answered & plan of care reviewed with KARMEN Davila.
--- NOTE | 2020-03-22 18:16 | NUR ---
Patient in room PCU 3012. I have received report from Lyubov PERAZA and had the opportunity to ask questions and assume patient care.
[2020-03-22] MEDS: insulin glargine (Lantus) pen - multi-dose SQ SCH (21:24)
[2020-03-22 22:00] VITALS: BP 108/56
[2020-03-23 02:00] VITALS: BP 124/59
[2020-03-23] MEDS ORDERED: VANCOMYCIN LEVEL IV ONE (02:30)
[2020-03-23 02:47] LABS: BASOPHILS % (AUTO) 0.2 % (0-1); EOSINOPHILS # (AUTO) 0.1 X10'3 (0-0.9); EOSINOPHILS % (AUTO) 0.6 % (0-6); HEMOGLOBIN 9.4 g/dl (14.0-17.9); LYMPHOCYTES # (AUTO) 0.9 X10'3 (1.1-4.8); LYMPHOCYTES % (AUTO) 6.1 % (21-51); MEAN CORPUSCULAR HGB CONC 30.3 g/dL (33.0-36.5); MEAN CORPUSCULAR VOLUME 75.7 FL (78-98); MEAN PLATELET VOLUME 8.4 FL (7.4-10.4); MONOCYTES # (AUTO) 0.7 X10'3 (0-0.9); MONOCYTES % (AUTO) 4.6 % (2-12); NEUTROPHILS # (AUTO) 13.5 X10'3 (1.8-7.7); NEUTROPHILS % (AUTO) 88.5 % (42-75); PLATELET COUNT 106 X10'3 (140-440); RED CELL DISTRIBUTION WIDTH 21.7 % (11.5-14.5); WHITE BLOOD COUNT 15.2 X10'3 (4.5-11.0)
[2020-03-23 03:02] LABS: ALANINE AMINOTRANSFERASE 35 U/L (12-78); ALBUMIN 2.3 G/DL (3.4-5.0); ALBUMIN/GLOBULIN RATIO 0.5 (1.1-1.5); ALKALINE PHOSPHATASE 81 IU/L (46-116); ANION GAP 5 (8-16); ASPARTATE AMINO TRANSFERASE 27 U/L (10-37); BILIRUBIN,TOTAL 0.8 MG/DL (0.1-1.0); BLOOD UREA NITROGEN 28 MG/DL (7-18); BUN/CREATININE RATIO 28.3 (5.4-32.0); CALCIUM 8.4 MG/DL (8.5-10.1); CHLORIDE 107 MMOL/L (99-107); CREATININE 0.99 MG/DL (0.60-1.10); MAGNESIUM 1.9 MG/DL (1.5-2.4); POTASSIUM 4.3 MMOL/L (3.5-5.1); SODIUM 140 MMOL/L (135-145); TOTAL CARBON DIOXIDE 27.8 MMOL/L (24-32); TOTAL PROTEIN 7.2 G/DL (6.4-8.2); eGFR 76 ML/MIN
[2020-03-23 03:14] LABS: ANISOCYTOSIS 3+; GLUCOSE 94 MG/DL (70-104); MICROCYTOSIS 1+; PLATELET ESTIMATE DECREASED; TOTAL CELLS COUNTED 100
[2020-03-23 03:15] LABS: ELLIPTOCYTES 3+; SCHISTOCYTES FEW
[2020-03-23] MEDS: VANCOmycin 1250MG/NS 250ml Bag 250 ML IV SCH (03:24)
[2020-03-23 06:00] VITALS: BP 101/45
--- NOTE | 2020-03-23 06:34 | NUR ---
Problems reprioritized. Patient report given, questions answered & plan of care reviewed with Karlie PERAZA.
--- NOTE | 2020-03-23 06:40 | NUR ---
Patient in room PCU 3012. I have received report from KARMEN Davila and had the opportunity to ask questions and assume patient care.
[2020-03-23] MEDS: JUVEN Smoothie Arginine/Glut./Ca2+Bmb (Juven 19.3pkt) 240ml cup PO SCH (07:30)
[2020-03-23] MEDS: K and/or MAG REPLACEMENT MC SCH (08:00)
[2020-03-23] MEDS: sertraline 50mg tablet PO SCH (08:52)
[2020-03-23] MEDS: gabapentin 300mg capsule PO SCH ×2 (08:52→12:39)
[2020-03-23] MEDS: ferrous sulfate 325mg tablet PO SCH (08:52)
[2020-03-23] MEDS: tamsulosin 0.4mg capsule PO SCH (08:52)
[2020-03-23] MEDS: lactobacillus rhamnosus 10,000 MMU CELLS/CAPSULE PO SCH (08:52)
[2020-03-23] MEDS: pravastatin 40mg tablet PO SCH (08:52)
[2020-03-23] MEDS: insulin Lispro (HumaLOG) vial - multi-dose SQ SCH ×2 (08:55→12:41)
[2020-03-23] MEDS ORDERED: furosemide 40mg/4ml inj IV ONE (10:05)
[2020-03-23 11:00] VITALS: BP 107/44
[2020-03-23] MEDS: NUT.TX.GLUC.INTOLER,LAC-FR,SOY (GLUCERNA) 237 ML PO SCH (12:30)
--- NOTE | 2020-03-23 14:28 | NUR ---
4F SINGLE LUMEN MIDLINE PLACED TO THE BASILIC VEIN X'S 1 ATTEMPT WITH SUCCESS USING ULTRASOUND GUIDANCE. TIP ENDS MID-AXILLARY, DRAWS BLOOD AND FLUSHES WITHOUT DIFFICULTY. Ce WHIPPLE PICC RN
[2020-03-23 15:00] VITALS: BP 103/80
--- NOTE | 2020-03-23 15:15 | NUR ---
Dressing to midline IV changed per PICC RN request D/T soiling right after placement. New dressing CDI.
--- NOTE | 2020-03-23 16:05 | NUR ---
Pt discharged to [facility] per hospitalist orders. Pt transported by [employer] via wheelchair on 4L O2. Report called to Leann at [facility]. Flannel jacket and wooden cane sent with patient.
== END 2020-03-23 16:05 | DRG 871 ==
LOC: ER 15:50 → ED HOLD 20:57 → PCU 3S 03-18 01:22
PROVIDERS: ADMIT Internal Medicine; ATTEND Internal Medicine
PROC: 5A09357 Assistance with Respiratory Ventilation, Less than 24 Consecutive Hours, Continuous Positive Airway Pressure (ICD-10-PCS; principal; 2020-03-18)
PROC: 5A09357 Assistance with Respiratory Ventilation, Less than 24 Consecutive Hours, Continuous Positive Airway Pressure (ICD-10-PCS; 2020-03-19)
PROC: 5A09357 Assistance with Respiratory Ventilation, Less than 24 Consecutive Hours, Continuous Positive Airway Pressure (ICD-10-PCS; 2020-03-21)
PROC: 5A09357 Assistance with Respiratory Ventilation, Less than 24 Consecutive Hours, Continuous Positive Airway Pressure (ICD-10-PCS; 2020-03-23)
DX: A41.89 Other specified sepsis (principal); G93.41 Metabolic encephalopathy; N39.0 Urinary tract infection, site not specified; N17.9 Acute kidney failure, unspecified; R65.20 Severe sepsis without septic shock; L89.159 Pressure ulcer of sacral region, unspecified stage; E11.42 Type 2 diabetes mellitus with diabetic polyneuropathy; E11.65 Type 2 diabetes mellitus with hyperglycemia; E78.00 Pure hypercholesterolemia, unspecified; E78.5 Hyperlipidemia, unspecified; F32.9 Major depressive disorder, single episode, unspecified; I48.91 Unspecified atrial fibrillation; I50.9 Heart failure, unspecified; N40.0 Benign prostatic hyperplasia without lower urinary tract symptoms; K21.9 Gastro-esophageal reflux disease without esophagitis; M54.5 Low back pain; Z86.711 Personal history of pulmonary embolism; Z88.0 Allergy status to penicillin; Z79.01 Long term (current) use of anticoagulants
CPT/HCPCS: 36415; 36600; 70450; 71045; 76775; 76937; 80048; 80053; 80061; 80202; 80305; 80320; 81001; 82140; 82803; 82948; 83036; 83605; 83735; 83880; 84484; 85007; 85008; 85018; 85025; 87040; 87077; 87081; 87088; 93005; 93306; 93308; 94640; 94660; 94760; 96365; 96375; 97116; 97161; 97530; 97535; 99285; G0378; J0456; J0696; J1815; J1940; J1956; J2060; J2270; J2405; J3370; J7030